=== PATIENT | female | born 1950 | race Caucasian/White ===

== ENCOUNTER → 2016-04-15 | Outpatient (CLI) | payer BC ==
[2015-03-12 12:03] VITALS: BP 104/54
[~2016-04-15] MED LIST: ASPI81TA50 PO; ATOR20TA58 PO; ESCI10TA10 PO; LISI10TA2 PO; METF500T4 PO; METF500T9 PO; METO25TA4 PO; METO50TA2 PO; ONDA4TAB7 PO; OXYC-323 PO
--- NOTE | 2016-04-15 14:30 | RAD ---
DATE: 04/15/2016 EXAM: DIGITAL DIAGNOSTIC LT, BREAST LEFT HISTORY: Suspicious screening study COMPARISON: 04/01/2016, 04/23/2015, 04/26/2014, 03/05/2014, 02/01/2013 This study was interpreted with the benefit of Computerized Aided Detection (CAD). FINDINGS: Additional spot compression views of the lateral aspect of the left breast confirm the presence of a poorly marginated patch of increased density measuring approximately 2.5 cm in diameter. This density was not present on previous studies. It is less clearly visualized on the straight mediolateral view but appears to lie at approximately the 3:00 location. No microcalcifications are seen in this region. Left breast ultrasound, 04/15/2016: A targeted ultrasound exam of the lateral aspect left breast was performed. Heterogeneous fibroglandular shadows are present. No breast mass is delineated. IMPRESSION: Poorly marginated area of developing density in the lateral left breast with no sonographic correlate. MR scanning should be considered for further evaluation. BI-RADS CATEGORY: 0 INCOMPLETE: NEEDS ADDITIONAL IMAGING EVALUATION AND/OR PRIOR MAMMOGRAMS FOR COMPARISON. RECOMMENDED FOLLOW-UP: ADD ADDITIONAL IMAGING PQRS compliance statement: Patient information was entered into a reminder system with a target due date for the next mammogram. Mammography is a sensitive method for finding small breast cancers, but it does not detect them all and is not a substitute for careful clinical examination. A negative mammogram does not negate a clinically suspicious finding and should not result in delay in biopsying a clinically suspicious abnormality. "Our facility is accredited by the [employer] Mammography Program."
== END | disposition home or self-care (01) ==
LOC: KCIC MAMMO 13:28
PROVIDERS: ATTEND Obstetrics & Gynecology
DX: N63 Unspecified lump in breast (principal); R92.8 Other abnormal and inconclusive findings on diagnostic imaging of breast
CPT/HCPCS: 76641; 77051; G0206; 77065

== ENCOUNTER 2021-04-22 07:42 | Emergency (ER) | payer BC ==
[2015-03-12 12:03] VITALS: BP 104/54
[~2021-04-22 07:42] MED LIST changes: -ESCI10TA10 PO; +LEXAPRO10 MG PO; +LISI10TA16 PO; -LISI10TA2 PO; +METF-658 PO; +METF500T16 PO; -METF500T4 PO; -METF500T9 PO; -METO50TA2 PO; +METO50TA6 PO; -OXYC-323 PO; +OXYC1TAB15 PO
== END 2021-04-22 07:43 | disposition left against medical advice (07) ==
LOC: ER 07:42
DX: R22.40 Localized swelling, mass and lump, unspecified lower limb (principal); Z53.21 Procedure and treatment not carried out due to patient leaving prior to being seen by health care provider